=== PATIENT | female | born 1995 | race Caucasian/White ===

== ENCOUNTER 2017-02-18 13:06 | Emergency (ER) | payer SELFPAY ==
[~2017-02-18] VITALS: Ht 167.6 cm; Wt 157.0 kg
[~2017-02-18 13:06] MED LIST: MOTRIN800 MG PO; PROTONIX20 MG PO; ZANTAC150 MG PO; ZITHROMAX250 MG PO
[2017-02-18 14:48] LABS: HEMATOCRIT 34.2 % (36.0-46.0); HEMOGLOBIN 10.1 G/DL (11.9-15.5); MCH 20.6 PG (29.0-34.0); MCHC 29.5 G/DL (30.0-36.0); MCV 69.8 FL (83-99); PLATELET COUNT 534 K/uL (156-360); RBC DIS.WIDTH-CV 18.4 % (11.8-14.6); RBC DIS.WIDTH-SD 45.5 % (39-53); WHITE BLOOD COUNT 11.6 K/uL (4.1-10.2)
[2017-02-18 14:51] LABS: CHLORIDE 105 mEq/L (99-109); POTASSIUM 3.4 mEq/L (3.7-5.4); SODIUM 139 mEq/L (136-147)
[2017-02-18 14:53] LABS: GLUCOSE 107 mg/dL (70-99)
[2017-02-18 14:56] LABS: CREATININE 0.7 mg/dL (0.6-1.3); GFR ESTIMATE (CALCULATED) > 59 mL/min/
[2017-02-18 14:57] LABS: UREA NITROGEN (BUN) 8 mg/dL (9-23)
[2017-02-18] MEDS ORDERED: PHENERGAN-CODE120 ML PO (15:52)
[2017-02-18] MEDS ORDERED: LEVAQUIN500 MG PO (15:52)
[2017-02-18 16:06] VITALS: BP 166/94
== END 2017-02-18 16:07 | disposition home or self-care (01) ==
LOC: EME 13:06
PROVIDERS: Physician Assistant
DX: J20.9 Acute bronchitis, unspecified (principal); J01.90 Acute sinusitis, unspecified; R04.2 Hemoptysis
CPT/HCPCS: 71020; 80048; 85027; 85379; 99281; 99283